=== PATIENT | female | born 1985 | race Caucasian/White ===

== ENCOUNTER 2017-01-05 16:51 | Emergency (ER) | payer OTHER ==
--- NOTE | ~2017-01-05 | CR142 ---
[facility] A Service of [facility] RADIOLOGY TEXT RESULTS PATIENT: LYDIA IYP LOCATION: SED : 81 UNIT #: [id number] AGE: [address]: NURA CARL SEX: F ORDER DR: [id number] [place] [id number] MR#: [id number] Acc #: [id number] NAME: LYDIA YIP : 1985 SEX: F STUDY DATE/TIME: 01/05/2017 17:17 UNIT: SED ROOM: STUDY DESCRIPTION: CR Hand Min 3 Views Rt Ordering Physician: [facility] Primary Care Physician: Layton Hamilton M.D. MEDICAL IMAGING REPORT This report is preliminary unless electronic signature is present. EXAM Right hand 01/05/2017 HISTORY 31-year-old female with right hand pain status post laceration and with metal florencio 3 days ago. COMPARISON STUDIES None. FINDINGS 3 views of the right hand demonstrate some mild soft tissue swelling throughout the third digit. No radiopaque foreign bodies or soft tissue gas. No acute bony abnormality. IMPRESSION Mild soft tissue swelling throughout the third digit. No radiopaque foreign bodies or soft tissue gas. No acute bony abnormality. Dictated by... Dixon Finley M.D. THIS IS AN ELECTRONICALLY VERIFIED REPORT Dixon Finley M.D. at 01/06/2017 3:03 PM JSANDRA/pcl TD: 01/06/2017 00:11 JOB #: [id number] MEDICAL IMAGING REPORT [facility] A Service of [facility] RADIOLOGY TEXT RESULTS PATIENT: LYDIA YIP LOCATION: SED : 83 UNIT #: [id number] AGE: [address]: NURA CARL SEX: F ORDER DR: Page 1 of 1
[~2017-01-05 16:51] MED LIST: ACETAMINOPHEN325 MG PO; ALBUTEROL17 G1 IH; AUGMENTIN875 MG PO; BACLOFEN20 M1 PO; BACTRIM DS TABL1 TA1 PO; BENADRYL25 MG PO; BUTRANS1 EAC1 TD; CELEXA PO; COLACE50 MG PO; DAKIN'S MODIF1000 ML; DESYREL50 MG PO; DIAZEPAM PO; DURAGESIC100 MCG TOP; FLEXERIL10 M1 PO; FLEXERIL10 MG PO; GABAPENTIN800 MG PO; IBUPROFEN800 MG PO; LEVAQUIN250 MG PO; LEVAQUIN750 MG PO; LORTAB 10-3251 EACH PO; LORTAB 7.5-5001 TAB PO; MACROBID100 M1 PO; MEDROL DOSEPAK4 MG PO; MELATONIN5 M2 PO; MILK OF MAGNESIA PO; NEURONTIN PO; NEURONTIN800 MG PO; NORCO 10/3251 TAB PO; PERCOCET 10/3251 TAB PO; PERCOCET 51 UDTAB 5/ PO; PERCOCET7.5 PO; ROBAXIN500 MG PO; TYLENOL325 M1 PO; VIBRAMYCIN100 M1 PO; XANAX2 MG PO; ZITHROMAX1 G/PKT PO; ZYVOX600 MG PO
[2017-01-05] MEDS ORDERED: IMITREX (16:55)
== END 2017-01-05 18:36 | disposition home or self-care (01) ==
LOC: SED 16:51
DX: S60.031A Contusion of right middle finger without damage to nail, initial encounter (principal); F17.200 Nicotine dependence, unspecified, uncomplicated; Z88.8 Allergy status to other drugs, medicaments and biological substances; Z23 Encounter for immunization; Z79.899 Other long term (current) drug therapy; W22.8XXA Striking against or struck by other objects, initial encounter; Y92.69 Other specified industrial and construction area as the place of occurrence of the external cause
CPT/HCPCS: 29280; 73130; 90471; 90715; 99283

== ENCOUNTER 2017-01-15 18:01 | Emergency (ER) | payer OTHER ==
[~2017-01-15 18:01] MED LIST changes: +IMITREX
== END 2017-01-15 19:23 | disposition home or self-care (01) ==
LOC: CED 18:01 → CFTX 18:01
DX: L03.011 Cellulitis of right finger (principal); F41.8 Other specified anxiety disorders; F17.200 Nicotine dependence, unspecified, uncomplicated; Z88.8 Allergy status to other drugs, medicaments and biological substances
CPT/HCPCS: 96372; 99283; J0690